=== PATIENT | female | born 1980 | race Caucasian/White ===

== ENCOUNTER 2021-10-30 16:38 | Emergency (ER) | payer OTHER, MEDICAID ==
[~2021-10-30] VITALS: Ht 162.6 cm; Wt 104.3 kg
[~2021-10-30 16:38] MED LIST: ADVAIR 250-501 EACH IH; ADVAIRDISKUS IH; ALBUTEROL INH IH; AMBEREN; AMOXICILLIN/POTASSIU; AMOXICILLIN875 MG PO; ANTIFUNGAL15 G1; B-COMPLEX 100400 MC1; CETIRIZINE HCL PO; CITRATE OF MAG296 ML PO; COLACE 100 MG100 MG PO; COLACE100 MG PO; GABITRIL12 MG PO; GABITRIL16 MG PO; GEODON80 MG PO; GLUCOPHAGE XR500 MG PO; GLUCOPHAGE500 MG PO; HYDROCHLOROTHIA25 M1 PO; HYDROXYZINE HCL25 M2 PO; IBUPROFEN 800800 M1 PO; LAMOTRIGINE100 MG PO; LORAZEPAM 1 MG T1 M1; MEDROLDOSEPACK PO; NASONEX17 GM NS; NORCO 5-325 TA1 EACH PO; PAROXETINE HCL20 MG PO; PAXIL 20 MG TAB20 MG PO; PERCOCET 5-3251 EACH PO; PRILOSEC 20 MG20 MG PO; PROAIR HFA8.5 GM IH; ROBAXIN500 MG PO; SIMVASTATIN40 MG PO; SUPER B COMPLE1 EAC2 PO; TRICOR145 MG PO; VALTREX 500 MG500 MG PO; VISTARIL 25 MG25 M1 PO; ZOCOR40 MG PO; ZYRTEC PO
[2021-10-30] MEDS ORDERED: NORCO5 PO (17:02)
[2021-10-30 17:20] VITALS: BP 175/121
== END 2021-10-30 17:20 | disposition home or self-care (01) ==
LOC: M.ERS 16:38
DX: S46.211A Strain of muscle, fascia and tendon of other parts of biceps, right arm, initial encounter (principal); F31.9 Bipolar disorder, unspecified; F20.9 Schizophrenia, unspecified; E11.9 Type 2 diabetes mellitus without complications; I10 Essential (primary) hypertension; Z79.899 Other long term (current) drug therapy; Z88.8 Allergy status to other drugs, medicaments and biological substances; Z88.5 Allergy status to narcotic agent; X50.1XXA Overexertion from prolonged static or awkward postures, initial encounter; Y93.89 Activity, other specified; Y92.89 Other specified places as the place of occurrence of the external cause; Y99.8 Other external cause status